=== PATIENT | male | born 1955 | race Two or more races ===

== ENCOUNTER 2018-07-22 09:43 | Outpatient (CLI) ==
--- NOTE | 2018-07-23 13:45 | US ---
EXAM: Scrotal ultrasound HISTORY: Right testicle mass COMPARISON: None TECHNIQUE: Scrotal ultrasound was performed FINDINGS: Right: Right testicle measures 5.5 x 2.0 x 2.1 cm. Right testicle normal in echogenicity and vascul arity. Small cystic structure in the peripheral aspect of the testicle with mild internal echoes, me asuring 0.4 x 0.5 x 0.4 cm. Complex conglomerate cystic structures in the right periepididymal region measuring 3.6 x 2.1 x 3.8 cm. Individual cystic structures in this region measure up to 2.2 cm and 2 .1 cm mild internal echoes, likely spermatoceles.. Smaller cystic structures are present intersperse d in this region. Right epididymis otherwise unremarkable. Left: Left testicle measures 4.4 x 2.5 cm. Left testicle normal in echogenicity and vascularity. L eft epididymis appears normal. IMPRESSION: 1. Complex conglomerate cystic structures in the right periependymal region measuring up to 3.8 cm i n total with individual structures measuring 2.2 cm. 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 Findings can correlate clinically for any evidence of infectious process. Changes from o ld hemorrhage/trauma, considered less likely. 2. Small cystic structure in the right testicle measuring 0.5 cm, nonspecific. 3. Normal appearance left testicle. 4. Normal appearance right and left epididymis. 5. Sonographic follow-up is recommended in 1 month for finding #1 and #2.
== END 2018-07-22 09:44 | disposition home or self-care (01) ==
LOC: RAD 09:43
PROVIDERS: ATTEND Physician Assistant
DX: N50.9 Disorder of male genital organs, unspecified (principal)